=== PATIENT | female | born 1965 | race Caucasian/White ===

== ENCOUNTER 2016-07-17 09:15 | Emergency (ER) | payer OTHER ==
--- NOTE | ~2016-07-17 | ER ---
PATIENT'S NAME: RADHA RIZOIE Janny [facility] AGE: 51 Y [address] ROOM: [place] [address] LOCATION: ED ADMIT DATE: 07/17/2016 ER/Outpatient Report DISCHARGE DATE: 07/17/2016 FAMILY PHYSICIAN: Lelia Rodas MD ATTENDING PHYSICIAN: Aide Jain TIME OF ARRIVAL: 0915 hours. TIME SEEN: 0918 hours. IDENTIFICATION: A 51-year-old female. CHIEF COMPLAINT: Chest pain. HISTORY OF PRESENT ILLNESS: The patient has substernal chest pain radiating to both arms and through to her back since last night. Constant pain. Sharp, burning sensation. Associated with nausea. She vomited "a little." No diaphoresis. No shortness of breath. No other symptoms. She has never had pain like this before. She has no family history of premature coronary artery disease. She does have hypertension. No history of hyperlipidemia. She does not smoke, she quit 7 years ago. No history of diabetes. Pain right now she says is minimal, but she rates it as 3 to 5 on the pain scale. PAST MEDICAL HISTORY: ALLERGIES: SHE HAS NO KNOWN DRUG ALLERGIES. CURRENT MEDICATIONS: 1. Prozac 20 mg daily. 2. Gabapentin 300 mg daily. 3. Ziac 5/6.25 mg daily. 4. Levora daily. 5. Bentyl 20 mg q.8 hours. 6. ProAir 90 mcg p.r.n. 7. Symbicort 160 b.i.d. 8. Lorazepam 0.5 mg p.r.n. anxiety. 9. Ibuprofen. 10. Claritin-D. 11. Digestive Advantage. PATIENT'S NAME: MARTHA RIZO [facility] AGE: 51 Y [address] ROOM: [place] [address] LOCATION: ED ADMIT DATE: 07/17/2016 ER/Outpatient Report DISCHARGE DATE: 07/17/2016 FAMILY PHYSICIAN: Lelia Rodas MD ATTENDING PHYSICIAN: Aide Jain 12. Rolaids. MEDICAL PROBLEMS: Irritable bowel syndrome, anxiety and panic attacks, chronic neck pain, hypertension, perimenopausal control, asthma. PRIOR SURGERIES: Cholecystectomy and neck surgery. FAMILY HISTORY: Father with diabetes. No family history of premature coronary artery disease. Grandparents had coronary artery disease later in life. PHYSICAL EXAMINATION: HEENT: Head: Normocephalic, atraumatic. Ears: TMs translucent, both ears. Nose: Mucosa pink, no lesions. Mouth: No lesions. Pharynx: Benign. NECK: Supple. No lymphadenopathy. LUNGS: Clear to auscultation. HEART: Regular rate and rhythm. ABDOMEN: Soft and nondistended. She is a little tender in the epigastric region. She has pain radiating through to her back. No chest wall tenderness. SKIN: Alpha, warm, and dry. No lesions or rashes noted. NEUROLOGIC: No focal deficit. EXTREMITIES: No edema. No calf tenderness. No lower extremity edema. PSYCHIATRIC: The patient has a very flat affect. LABORATORY AND DIAGNOSTIC DATA: Sodium 141, potassium 3.4, chloride 108, CO2 of 22, BUN 10, creatinine. 0.8, and blood sugar 131. Liver enzymes normal. Magnesium 2.2. Amylase 35 and lipase 127. HCG less than 1. CPK 53, CK-MB less than 0.5, and troponin-I less than 0.040. Hemoglobin 12.5, hematocrit 36.9, platelets 251, and white count 9.1 with a normal differential. INR 1.0. D-dimer 0.54. EKG done at 0918 hours: Normal sinus rhythm at 84 beats per minute. No acute ST elevation or depression. No prior EKG available for comparison at that time. Repeat EKG at 1126 hours: Normal sinus rhythm at 76 beats per minute. No acute ST elevation or depression. No significant change from prior EKG. There is some mild artifact. Two-hour cardiac enzymes: CPK 44, CK-MB 0.7, and troponin-I less than 0.040. Chest x-ray, one view: No acute process, pending radiology over-read. CT scan, PE protocol: Normal per Dr. Whitmore. She does have an incidental calcified granuloma at the right base. EMERGENCY DEPARTMENT COURSE: The patient was given GI cocktail with no relief, nitroglycerin tablet with no relief, nitroglycerin drip with no relief, Toradol with no relief, fentanyl PATIENT'S NAME: MARTHA RIZO [facility] AGE: 51 Y [address] ROOM: [place] [address] LOCATION: [facility] ADMIT DATE: 07/17/2016 ER/Outpatient Report DISCHARGE DATE: 07/17/2016 FAMILY PHYSICIAN: Lelia Rodas MD ATTENDING PHYSICIAN: Aide Jain with some relief. IMPRESSION AND PLAN: Atypical chest and back pain. PLAN: Home, to rest. Rest and fluids. Tylenol or Advil for [id number] pain. Witter 5/325 one p.o. q.4-6 hours p.r.n. pain, dispensed 15, with 0 refills. Follow up with Dr. Rodas in 2 days, follow up sooner if any problems or concerns. The patient remained hemodynamically stable throughout her stay here in the emergency room. AIDE JAIN MD CAR/modl /[id number] d: 07/17/16 1440 t: 07/18/16 0722, OUTPATIENT REPORT
[2016-07-17 09:41] LABS: BASOPHIL # 0.1 K/uL (0.0-0.2); BASOPHIL % 0.7 %; EOSINOPHIL # 0.7 K/uL (0.0-0.5); EOSINOPHIL % 7.4 %; HEMATOCRIT 36.9 % (33.0-46.0); HEMOGLOBIN 12.5 g/dL (10.0-15.0); IMMATURE GRANULOCYTE % 0.4 %; LYMPHOCYTE # 2.4 K/uL (0.8-4.0); LYMPHOCYTE % 26.2 %; MCH 31.5 pg (27.0-34.0); MCHC 33.9 gm/dL (32.0-36.5); MCV 92.9 fl (83.0-98.0); MONOCYTE # 0.6 K/uL (0.0-1.0); MONOCYTE % 6.4 %; MPV 9.4 fl (9.4-12.4); NEUTROPHIL # (ANC) 5.4 K/uL (1.8-7.8); NEUTROPHIL % 58.9 %; NRBC % 0 /100WBC (0-0.00); PLATELET COUNT 251 K/uL (150-450); RBC 3.97 M/uL (3.50-5.50); RDW-CV 12.9 % (11.9-14.6); WBC 9.1 K/uL (4.0-11.0)
[2016-07-17 09:49] LABS: PROTIME 10.3 SECONDS (9.6-11.1); PTT 29 SECONDS (25-32)
[2016-07-17 09:58] LABS: ALBUMIN 3.1 gm/dL (3.5-5.0); ALK PHOS 70 IU/L (33-138); ALT 17 IU/L (12-78); ANION GAP 14.4 (10.0-19.0); AST 10 IU/L (10-40); BLOOD UREA NITROGEN 10 mg/dL (6-24); CALCIUM 8.7 mg/dL (8.5-10.5); CHLORIDE 108 mMol/L (96-110); CO2 22 mMol/L (22-32); CPK 53 IU/L (21-215); CREATININE 0.8 mg/dL (0.5-1.1); ESTIMATED GFR (MDRD EQUATION) > 60; MAGNESIUM 2.2 mg/dL (1.3-2.6); POTASSIUM 3.4 mMol/L (3.7-5.1); SODIUM 141 mMol/L (135-145); TOTAL BILIRUBIN 0.2 mg/dL (0.0-1.5)
[2016-07-17 12:06] LABS: CPK 44 IU/L (21-215)
== END 2016-07-17 13:32 | disposition disaster alternative care site (69) ==
LOC: GMED 09:15
PROVIDERS: Family Medicine
DX: R07.89 Other chest pain (principal); M54.9 Dorsalgia, unspecified; Z90.49 Acquired absence of other specified parts of digestive tract; Z98.890 Other specified postprocedural states; Z79.899 Other long term (current) drug therapy
CPT/HCPCS: J1885; J3010; J7030